=== PATIENT | male | born 1985 | race Caucasian/White ===

== ENCOUNTER 2018-12-19 00:43 | Emergency (ER) | payer MEDICAID ==
[~2018-12-19] VITALS: Ht 172.7 cm; Wt 75.0 kg
[2018-12-19 00:45] VITALS: BP 134/76
--- NOTE | 2018-12-19 02:41 | NUR ---
PT HAS BEEN SLEEPING ON GURNEY. NO DISTRESS OR SEIZURE ACTIVITY NOTED. WILL CONTINUE TO MONITOR.
[2018-12-19] MEDS ORDERED: TOP100T PO (03:02)
[2018-12-19] MEDS ORDERED: LEVE750T6 PO (03:02)
== END 2018-12-19 03:29 | disposition home or self-care (01) ==
LOC: ER 00:44
DX: R56.9 Unspecified convulsions (principal); Z59.0 Homelessness; Z76.0 Encounter for issue of repeat prescription
CPT/HCPCS: 99283